=== PATIENT | male | born 1985 | race American Indian/Alaskan Native ===

== ENCOUNTER 2021-07-24 05:59 | Day surgery (SDC) | payer MEDICARE ==
[2021-07-24] MEDS ORDERED: ceFAZolin/Water 2 GM/20 ML 2 GM/20 ML SYRINGE IV NR (06:00)
[2021-07-24] MEDS ORDERED: SODIUM CHLORIDE 0.9% 1000 ML 1,000 ML ONE (06:00)
[2021-07-24 06:32] LABS: Hematocrit 32.5 % (35.5-45.6); Hemoglobin 10.5 gm/dl (11.8-15.2); Mean Corpuscular HGB Conc 32 % (32-34); Mean Corpuscular Volume 88 fl (84-94); Platelet Count 103 K/mm3 (140-440); Red Blood Count 3.68 M/mm3 (3.65-5.03); Red Cell Distribution Width 14.2 % (13.2-15.2)
[2021-07-24 06:44] LABS: Calcium 8.7 mg/dL (8.4-10.2)
--- NOTE | 2021-07-24 07:29 | Anesthesia Consultation ---
Anesthesia Consult and Med Hx Date of service: 07/24/21 - Airway Anesthetic Teeth Evaluation: Good ROM Head & Neck: Adequate Mental/Hyoid Distance: Adequate Mallampati Class: Class II Intubation Access Assessment: Probably Good - Pre-Operative Health Status ASA Pre-Surgery Classification: ASA3 Nerve Block: IS - Cardiovascular System Hx Hypertension: Yes - Central Nervous System Hx Psychiatric Problems: No - Endocrine Hx Renal Disease: Yes (On HD ) Hx End Stage Renal Disease: Yes (Dx 03/2021) Hx Non-Insulin Dependent Diabetes: Yes - Other Systems Hx Alcohol Use: No Hx Substance Use: No Hx Cancer: No
--- NOTE | 2021-07-24 07:30 | Anesthesia Day of Surgery ---
Anesthesia Day of Surgery - Day of Surgery Patient Examined: Yes Patient H&P Reviewed: Yes Patient is NPO: Yes Beta Blockers: Yes
[2021-07-24] MEDS ORDERED: BUPIVACAINE/PF (0.5%) 5 MG/1 ML 30 ML VIAL INFILTRATI ONE (07:47)
[2021-07-24] MEDS ORDERED: LIDOCAINE (1%) 10 MG/1 ML VIAL 20 ML MDV ONE ×2 (07:47→08:27)
[2021-07-24] MEDS ORDERED: MIDAZOLAM 2 MG/2 ML INJ IV NR (08:00)
[2021-07-24] MEDS ORDERED: fentaNYL 100 MCG/2 ML INJ IV SCH (08:00)
[2021-07-24] MEDS ORDERED: SODIUM CHLORIDE 0.9% 1000 ML 1,000 ML IV SCH (08:00)
[2021-07-24] MEDS ORDERED: FAMOTIDINE 20 MG/2 ML INJ IV NR (08:00)
[2021-07-24] MEDS ORDERED: HEPARIN 10,000 UNITS/10 ML VIAL ONE (08:04)
[2021-07-24] MEDS ORDERED: BUPIVACAINE/PF (0.5%) 5 MG/1 ML 10 ML VIAL INFILTRATI ONE ×2 (08:04→10:14)
[2021-07-24] MEDS ORDERED: PAPAVERINE 60 MG/2 ML INJ SDV ONE (08:05)
[2021-07-24] MEDS ORDERED: rifAMPin 600 MG VIAL ONE (08:07)
[2021-07-24] MEDS ORDERED: SODIUM BICARBONATE 2 MEQ/2 ML SYRINGE ONE (08:12)
[2021-07-24] MEDS ORDERED: SODIUM CHLORIDE 0.9% 250ML 0 ML ONE (08:13)
[2021-07-24] MEDS ORDERED: SODIUM CHLORIDE 0.9% 500 ML 500 ML ONE (08:13)
[2021-07-24] MEDS ORDERED: LIDOCAINE (2%) 20 MG/1 ML VIAL 20 ML MDV INFILTRATI ONE (08:26)
[2021-07-24] MEDS ORDERED: HYDROmorphone 1 MG/1 ML INJ IV PRN ×2 (08:39)
[2021-07-24] MEDS ORDERED: ONDANSETRON 4 MG/2 ML INJ IV PRN (08:39)
[2021-07-24] MEDS ORDERED: propofoL 200 MG/20 ML VIAL IV ONE (08:42)
[2021-07-24] MEDS ORDERED: HEPARIN 10,000 UNITS/10 ML VIAL IR ONE (09:23)
[2021-07-24] MEDS ORDERED: ONDANSETRON 4 MG/2 ML INJ ONE (10:21)
[2021-07-24] MEDS ORDERED: CLOPIDOGREL 300 MG TAB PO NR (10:35)
--- NOTE | 2021-07-24 10:35 | Short Stay Summary ---
Short Stay Documentation Date of service: 07/24/21 Narrative H&P: See H&P - History H&P: obtained from office - Allergies and Medications Current Medications: Allergies No Known Allergies Allergy (Verified 07/17/21 16:49) Home Medications Medication Instructions Recorded Confirmed Last Taken Type AtorvaSTATin [Lipitor] 20 mg PO QHS 07/17/21 07/24/21 07/23/21 20:00 History Losartan [Cozaar] 100 mg PO QDAY 07/17/21 07/24/21 07/23/21 09:00 History Metoprolol [Lopressor] 100 mg PO BID 07/17/21 07/24/21 07/24/21 05:00 History hydrALAZINE [Apresoline TAB] 100 mg PO BID 07/17/21 07/24/21 07/24/21 05:00 History Active Medications Famotidine (Famotidine 20 Mg/2 Ml Inj) 20 mg IV PREOP NR Stop: 07/24/21 21:00 Last Admin: 07/24/21 08:15 Dose: 20 mg Fentanyl (Fentanyl 100 Mcg/2 Ml Inj) 100 mcg IV ONCE@0800 [facility] Stop: 07/24/21 20:00 Last Admin: 07/24/21 08:05 Dose: 100 mcg Hydromorphone HCl (Hydromorphone 1 Mg/1 Ml Inj) 0.25 mg IV Q10MIN PRN PRN Reason: Pain, Moderate (4-6) Stop: 07/24/21 20:00 Hydromorphone HCl (Hydromorphone 1 Mg/1 Ml Inj) 0.5 mg IV Q10MIN PRN PRN Reason: Pain , Severe (7-10) Stop: 07/24/21 20:00 Cefazolin Sodium (Ancef/Sterile Water 2 Gm/20 Ml) 2 gm in 20 mls @ 80 mls/hr IV PREOP NR; Protocol Stop: 07/24/21 22:00 Sodium Chloride (Nacl 0.9% 1000 Ml) 1,000 mls @ 42 mls/hr IV DIRECT GONZALES Last Admin: 07/24/21 08:00 Dose: 42 mls/hr Midazolam HCl (Midazolam 2 Mg/2 Ml Inj) 2 mg IV PREOP NR Stop: 07/24/21 23:59 Last Admin: 07/24/21 08:05 Dose: 2 mg Ondansetron HCl (Ondansetron 4 Mg/2 Ml Inj) 4 mg IV ONCE PRN PRN Reason: Nausea And Vomiting Stop: 07/24/21 13:00 - Brief post op/procedure progress note Date of procedure: 07/24/21 Pre-op diagnosis: End-Stage Renal Disease Post-op diagnosis: same Procedure: Creation of Left Giacomo Arteriovenous Fistula Anesthesia: GETA, regional Surgeon: MOSES SMITH Estimated blood loss: minimal Pathology: none Condition: stable - Disposition Condition at discharge: Good Disposition: 01 HOME / SELF CARE / HOMELESS Short Stay Discharge Plan Activity: other (No heavy lifting with left arm for 2 weeks. Use a stress ball with left hand as often as possible.) Wound: open to air, keep clean and dry, other (Okay to wash the left arm incision with soap and water but do not soak in water for 2 weeks.) Follow up with: MOSES SMITH MD [Staff Physician] - 14 Days Prescriptions: HYDROcodone/APAP 7.5-325 [[place] 7.5/325] 1 each PO Q6HR PRN #30 tablet PRN Reason: Pain Clopidogrel [Plavix] 75 mg PO QDAY #90 tablet
--- NOTE | 2021-07-24 10:37 | Operative Report ---
Operative Report Operative Report: Date of procedure: 07/24/2021 Pre-operative diagnosis: End-Stage Renal Disease Post-operative diagnosis: End-Stage Renal Disease Procedure(s): Creation of Left Giacomo Fistula Surgeon: Guy Aguilar MD Weed Controller: None Anesthesia: Regional/General Endotracheal Anesthesia EBL: Minimal Counts: Correct Complications: None Condition: Stable Findings: Successful creation of left arm AV fistula with palpable thrill at the completion of the case. Specimen: None Indication: The patient is a 36-year-old male with history of end-stage renal disease who is currently on hemodialysis through a right internal jugular permacath. He is in need of long-term dialysis access and had adequate vein for creation of a Giacomo arteriovenous fistula. He was given the risk, benefits, and alternative procedures and consented to procedure. Description of Procedure: Prior to being transported to the operating room the patient had a regional block of his left upper extremity performed in the preoperative area. The patient was then transported to the operating room and adequately sedated. Once he was sedated his left arm was prepped and draped in normal sterile fashion. Prior to creating the incision it was determined that the patient's regional block was not adequate so General endotracheal anesthesia was administered. A longitudinal incision was then created on the distal wrist, centered between the cephalic vein and the radial artery. The dissection was carried down to the radial artery using sharp dissection and the radial artery was dissected circumferentially and controlled with vessel loops. The cephalic vein was then dissected circumferentially, ligating side branches with 3-0 silk ties and dividing them. The cephalic vein was then divided distally transpose to the radial artery. A 3 Braydon was then advanced through the cephalic vein proximally to ensure patency. The vein was then flushed with heparinized saline and control of the bulldog clamp. The patient was systemically heparinized with 3000 units of heparin IV and the radial artery clamped with DeBakey clamps. An arteriotomy was then created using an 11 blade and Sanz scissors. An end-to-side anastomosis was created between the cephalic vein and the radial artery using a single 6-0 Prolene in running fashion. Prior to completing the anastomosis I flashed the artery both retrograde and antegrade and advanced a 3 Braydon into the proximal portion of the artery to break the spasm. I then com pleted the anastomosis and removed all clamps allowing flow into the fistula which had a palpable thrill. Hemostasis within the wound was achieved with a combination of manual pressure, Quick Clot, and Surgicel. Once hemostasis was achieved the wounds were closed in 2 layers using a 3-0 Vicryl in running fashion in the deep dermal layers, 4-0 Monocryl in a running fashion the subcuticular layer, and Dermabond as a dressing. The patient tolerated the procedure well. All sponge, needle, and instrument counts were correct. The patient was taken to the recovery area in stable condition.
[2021-07-24] MEDS ORDERED: hydrALAZINE 20 MG/1 ML INJ ONE (10:52)
[2021-07-24] MEDS: hydrALAZINE 20 MG/1 ML INJ IV PRN ×2 (11:05→11:45)
--- NOTE | 2021-07-24 11:10 | Post Anesthesia Evaluation ---
- Post Anesthesia Evaluation Patient Participated: Yes Airway Patent: Yes Stable Respiratory Function: Yes Nausea/Vomiting: No Temp > 96.8F: Yes Pain Manageable: Yes Adequeate Hydration: Yes Anesthesia Complications: No Block Receding Appropriately: Yes Patient on Ventilator: No
[2021-07-24] MEDS ORDERED: LOSARTAN 50 MG TAB PO SCH (12:00)
[2021-07-24 20:33] VITALS: BP 187/97
== END 2021-07-24 06:00 | disposition home or self-care (01) ==
LOC: OR 05:59
PROVIDERS: ATTEND Surgery Vascular Surgery
DX: I12.0 Hypertensive chronic kidney disease with stage 5 chronic kidney disease or end stage renal disease (principal); E11.22 Type 2 diabetes mellitus with diabetic chronic kidney disease; N18.6 End stage renal disease; Z20.822 Contact with and (suspected) exposure to COVID-19; Z98.890 Other specified postprocedural states
CPT/HCPCS: 36415; 36821; 64415; 80048; 82962; 85027; C1757; J0360; J0690; J1644; J2250; J2405; J2704; J3010; J3490; J7030; J7040; U0003; 64450; J7120; Q0162; J2440; J7050